=== PATIENT | male | born 1950 | race Caucasian/White ===

== ENCOUNTER 2017-02-01 23:43 | Emergency (ER) | payer OTHER ==
--- NOTE | ~2017-02-01 | EKG ---
PATIENT: JERSON MONTEMAYOR UNIT #: [id number] Ventricular Rate: 69 BPM Atrial Rate: 69 BPM P-R Interval: 144 ms QRS Duration: 70 ms Q-T Interval: 406 ms QTC Calculation(Bezet): 435 ms P [place]: 80 degrees Calculated R [place]: 31 degrees Calculated T [place]: 59 degrees Diagnosis Line: Normal sinus rhythm with sinus arrhythmia Diagnosis Line: Normal ECG Diagnosis Line: When compared with ECG of 08-MAR-2016 17:50, Diagnosis Line: Nonspecific T wave abnormality no longer evident Diagnosis Line: in Lateral leads Diagnosis Line: Confirmed by VIC VALDEZ MD ([id number]) on 02/03/2017 Diagnosis Line: 11:12:17 PM INTERPRETING MD: COURTNEY LAZO
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
[2017-02-01 23:41] LABS: HEMATOCRIT 46.9 % (38.0-50.0); HEMOGLOBIN 15.8 gm/dL (13.0-16.0); MEAN CELL VOLUME 89.4 FL (83-96); MEAN CORPUSCULAR HGB CONC 33.6 g/dL (30-36); MEAN PLATELET VOLUME 8.6 FL (6.5-11.5); RED BLOOD COUNT 5.25 X10e (3.90-5.60); RED CELL DISTRIBUTION WIDTH 14.1 % (11.0-15.5); WHITE BLOOD COUNT 6.6 X10e3 (4.0-10.5)
[~2017-02-01 23:43] MED LIST: ALBUTEROL17 GM INH; ALLEGRA PO; CECLOR PULVULE250 MG PO; COMBIVENT RESPIM4 GM INH; CRESTOR10 MG PO; CYMBALTA PO; DULOXETINE HCL60 MG PO; FLOMAX0.4 M1 PO; FLONASE 0.05% N16 G1; LISINOPRIL PO; METOPROLOL TAR25 MG PO; MUCINEX D ER T1 EAC1 PO; PREDNISONE10 MG/DOSE PO; PRINIVIL40 MG PO; SPIRIVA18 MCG INH; SPIRIVA18 MCG PO; SYMBICORT INH; TOPROL XL PO; ZITHROMAX PO
[2017-02-01 23:57] LABS: ALBUMIN SERUM 4.6 g/dL (3.5-5.0); BILIRUBIN,TOTAL 0.7 mg/dL (0.2-2.0); BUN/CREATININE RATIO 15.55; CALCIUM SERUM 9.1 mg/dL (8.4-10.2); CREATININE SERUM 0.9 mg/dL (0.6-1.4); GLOM FILT RATE Estimated 89.3 mL/min (>60); POTASSIUM 4.2 mmol/L (3.5-5.1)
[2017-02-02 00:35] LABS: POC - CKMB <1.0 ng/mL (0.0-7.9); POC - MYOGLOBIN 59.5 ng/mL (0.0-169.0); POC - TROPONIN <0.05 ng/mL (<=0.05)
== END 2017-02-02 01:00 | disposition home or self-care (01) ==
LOC: SED 23:43
PROVIDERS: Nurse Practitioner
DX: R07.9 Chest pain, unspecified (principal); I10 Essential (primary) hypertension; J44.9 Chronic obstructive pulmonary disease, unspecified; V49.00XA Driver injured in collision with unspecified motor vehicles in nontraffic accident, initial encounter
CPT/HCPCS: 71020; 80053; 82553; 83874; 84484; 85027; 93005; 94640; 99284